=== PATIENT | female | born 1940 | race Caucasian/White ===

== ENCOUNTER → 2020-07-09 10:23 | Outpatient (BNVA) | payer MEDICARE, SELFPAY | PROVIDERS: PCP Internal Medicine; Referring Provider Internal Medicine; Visit Provider Hospitalist | DX: J44.9 Chronic obstructive pulmonary disease, unspecified (principal); R91.8 Other nonspecific abnormal finding of lung field | CPT/HCPCS: 99212 ==

== ENCOUNTER → 2020-11-26 10:32 | Outpatient (BNVA) | payer MEDICARE, SELFPAY | PROVIDERS: PCP Internal Medicine; Visit Provider Hospitalist | DX: R91.8 Other nonspecific abnormal finding of lung field (principal); J41.0 Simple chronic bronchitis; Z79.899 Other long term (current) drug therapy | CPT/HCPCS: 99212 ==

== ENCOUNTER → 2021-02-10 14:14 | Outpatient (BNVA) | payer MEDICARE, SELFPAY | PROVIDERS: PCP Internal Medicine; Visit Provider Hospitalist | DX: R91.8 Other nonspecific abnormal finding of lung field (principal); R06.00 Dyspnea, unspecified; R07.9 Chest pain, unspecified; J41.0 Simple chronic bronchitis | CPT/HCPCS: 99212 ==

== ENCOUNTER → 2021-04-21 13:37 | Outpatient (BNVA) | payer MEDICARE, SELFPAY | PROVIDERS: PCP Physician Assistant; Visit Provider Hospitalist | DX: R91.8 Other nonspecific abnormal finding of lung field (principal); R06.00 Dyspnea, unspecified; R07.9 Chest pain, unspecified; R04.2 Hemoptysis; J41.0 Simple chronic bronchitis; J18.9 Pneumonia, unspecified organism; U07.1 COVID-19 | CPT/HCPCS: Q3014 ==

== ENCOUNTER 2021-05-23 09:43 | Outpatient (REF) | payer MEDICARE, SELFPAY | END 2021-05-23 09:44 | disposition home or self-care (01) | LOC: HO.LNP 09:43 | PROVIDERS: PCP Physician Assistant; Visit Provider Hospitalist | DX: R91.8 Other nonspecific abnormal finding of lung field (principal); J18.9 Pneumonia, unspecified organism; J41.0 Simple chronic bronchitis; R06.00 Dyspnea, unspecified; R07.9 Chest pain, unspecified | CPT/HCPCS: 87070; 87205; 99212 ==

== ENCOUNTER → 2021-07-26 13:14 | Outpatient (BNVA) | payer MEDICARE, SELFPAY | PROVIDERS: PCP Physician Assistant; Visit Provider Hospitalist | DX: J41.0 Simple chronic bronchitis (principal); R91.8 Other nonspecific abnormal finding of lung field; R06.00 Dyspnea, unspecified; C34.90 Malignant neoplasm of unspecified part of unspecified bronchus or lung | CPT/HCPCS: 99212 ==

== ENCOUNTER → 2021-10-10 13:30 | Outpatient (BNVA) | payer MEDICARE, SELFPAY | PROVIDERS: PCP Physician Assistant; Visit Provider Hospitalist | DX: R91.8 Other nonspecific abnormal finding of lung field (principal); C34.90 Malignant neoplasm of unspecified part of unspecified bronchus or lung; J41.0 Simple chronic bronchitis; R06.00 Dyspnea, unspecified | CPT/HCPCS: 99212 ==

== ENCOUNTER → 2022-01-02 13:06 | Outpatient (BNVA) | payer MEDICARE, SELFPAY | PROVIDERS: PCP Physician Assistant; Visit Provider Hospitalist | DX: R91.8 Other nonspecific abnormal finding of lung field (principal); J41.0 Simple chronic bronchitis; R06.00 Dyspnea, unspecified; C34.90 Malignant neoplasm of unspecified part of unspecified bronchus or lung | CPT/HCPCS: 99212 ==

== ENCOUNTER → 2022-05-05 13:26 | Outpatient (BNVA) | payer MEDICARE, SELFPAY | PROVIDERS: PCP Physician Assistant; Visit Provider Hospitalist | DX: J41.8 Mixed simple and mucopurulent chronic bronchitis (principal); R91.8 Other nonspecific abnormal finding of lung field; R06.00 Dyspnea, unspecified; C34.90 Malignant neoplasm of unspecified part of unspecified bronchus or lung | CPT/HCPCS: 99212 ==

== ENCOUNTER 2022-08-14 11:35 | Outpatient (REF) | payer MEDICARE, SELFPAY ==
[2022-08-14 12:41] LABS: Influenza A PCR NEGATIVE (Negative); Influenza B PCR NEGATIVE (Negative); Resp Syncy Virus RNA Qual PCR NEGATIVE (Negative); SARS COV2 PCR INHOUSE NEGATIVE (Negative)
== END 2022-08-14 11:36 | disposition home or self-care (01) ==
LOC: HO.XRAY 11:35
PROVIDERS: Visit Provider Hospitalist
DX: Z20.822 Contact with and (suspected) exposure to COVID-19 (principal); R91.8 Other nonspecific abnormal finding of lung field; J41.8 Mixed simple and mucopurulent chronic bronchitis; C34.90 Malignant neoplasm of unspecified part of unspecified bronchus or lung; R07.9 Chest pain, unspecified; J18.9 Pneumonia, unspecified organism; R05.9 Cough, unspecified
CPT/HCPCS: 0241U; 71046; 99212

== ENCOUNTER → 2022-11-09 12:45 | Outpatient (BNVA) | payer MEDICARE, SELFPAY | PROVIDERS: PCP Physician Assistant; Visit Provider Hospitalist | DX: J41.8 Mixed simple and mucopurulent chronic bronchitis (principal); R06.00 Dyspnea, unspecified; C34.90 Malignant neoplasm of unspecified part of unspecified bronchus or lung; J90 Pleural effusion, not elsewhere classified | CPT/HCPCS: 99212 ==

== ENCOUNTER → 2023-02-23 10:13 | Outpatient (BNVA) | payer MEDICARE, SELFPAY | PROVIDERS: PCP Physician Assistant; Visit Provider Nurse Practitioner Family | DX: J41.8 Mixed simple and mucopurulent chronic bronchitis (principal); C34.90 Malignant neoplasm of unspecified part of unspecified bronchus or lung | CPT/HCPCS: 99212 ==

== ENCOUNTER 2023-05-10 12:54 | Outpatient (AMB) | payer MEDICARE, SELFPAY ==
[2023-05-10 13:03] VITALS: BP 124/70; PULSE 67; O2SAT 96; BMI 23.8
--- NOTE | 2023-05-10 13:03 | A.OFFVIS_ITS ---
Intake Vital Signs 05/10/23 13:03 Height 5 ft 4 in Weight 138 lb 14.259 oz BMI 23.8 BP 124/70 Blood Pressure Location Rt brachial Position Sitting Pulse 67 Pulse Source Pulse Oximeter Pulse Oximetry (%) 96 Oxygen Delivery Method Room Air Intake Visit Reasons: copd Vegetable [employer] Worker Required: No Allergies linaclotide [Linzess] Allergy (Severe, Verified 05/10/23 13:05) other lubiprostone [Amitiza] Allergy (Severe, Verified 05/10/23 13:05) other meperidine [Demerol] Allergy (Severe, Verified 05/10/23 13:05) N/V lisinopril Adverse Reaction (Severe, Verified 05/10/23 13:05) cough Penicillin Allergy (Severe, Uncoded 05/10/23 13:05) Rash/Dermatitis Percodan Allergy (Severe, Uncoded 05/10/23 13:05) ANAPHYLAXIS HPI HPI Comments History of Present Illness Details The patient is a 82-year-old woman with a known history of COPD in addition to breast cancer and underlying pulmonary nodules. Overall the patient is doing well from a respiratory status. She was admitted to [facility] with some focal sensory changes. During that evaluation she was found to have some cerebrovascular disease. In addition to the her last CT scan of the chest to follow her underlying pulmonary nodules was back in May 2019 demonstrating 1.8 cm nodular density in the left upper lobe. She has not had any imaging to follow-up. At this point patient continues to have some cough and shortness of breath. [id number] severity. She did gain weight. She understands this is probably contributing. She continues with respiratory therapy at this time. 07/26/2021 the patient is here for a pulmonary follow-up visit. Since we last spoke the patient was admitted to [facility] after developing worsening shortness of breath and hemoptysis. 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 Appears that the patient had rejected additional diagnostic interventions. During previous visits. The patient does have advanced COPD. She was referred to Oncology. She did undergo a PET scan demonstrating FDG activity of the Thoracic lymph nodes in addition to FDG activity of the left upper lobe mass. The patient will be seen radiation oncology soon to start radiation therapy. She may also undergo chemotherapy her immune therapy per the recommendation of her oncologist. She denies any more hemoptysis. She did as any chest congestion. If she does start with increasing chest congestion is reasonable to place her on antibiotics for the possibility of a postobstructive process. 10/10/2021 the patient is here for a pulmonary follow-up visit. She continues concomitant chemo radiation for the stage III lung cancer. She is tolerating her chemo. Although she is noticing increasing shortness of breath. She is scheduled to undergo pulmonary function studies sometime in the next few weeks at [facility]. In the meantime she does have some crackles on examination so therefore we will also request a chest x-ray to address the question of radiation induced pneumonitis in view of the concomitant therapy. The patient does have diabetes we have to be very careful not to empirically treated with steroids and potentially worsening diabetes. 01/02/2022 the patient is here for a pulmonary follow-up visit. The patient has been working closely with Oncology. She did complete her concomitant chemo radiation. She tolerated the therapy well. She did require some prednisone during that episode Radiation pneumonitis. Now she is off steroids. She was placed on a PDL 1 inhibitor. She is having some adverse effects. However, explained to the patient that this will provide her with disease control with longer longevity in survival. The patient will continue therapy for now. She is also complaining of congested cough with green sputum. Denies any chest tightness or wheezing. Explained to the patient that I was and some antibiotics to treat for bronchitis. However, she needs to be very careful with the use of systemic steroids as they will block the benefits of the PDL1 inhibitor. 05/05/2022 the patient is here for a pulmonary follow-up visit. Overall she continues to do very well. She is reassured with the fact that her recent CT scan of the chest demonstrated significant improvement in her lung density. She has responded to therapy. She will be following up with her oncologist soon. The patient understands that we need to avoid prednisone unless it is really necessary because it will interfere with her immune therapy. She is complaining of chest congestion. [id number] severity. Usually she brings up phlegm on a regular basis. This consistent with chronic bronchitis. Since will try to avoid the steroids will go ahead and start her on macrolide suppression therapy. 08/14/2022 the patient is here for a pul monary follow-up visit. She has been sick for the last 2-3 days. She has been complaining of back to be cough in addition to pleuritic chest discomfort. Primarily on the left side. Moderate severity. She has had some chills. Denies any sore throat. She has been exposed to multiple sick people while visiting her son in the ICU. Therefore, go ahead and swab her with our viral swab for flu, RSV and COVID-19. In the meantime will start treating the patient for bronchopneumonia. The patient is currently on immune therapy in therefore trying to hold off on the use of prednisone as it will interact with the efficacy of the PDL1 inhibitor. She continues use respiratory therapy. She continues with Symbicort. We had her on the azithromycin 3 times a week, the the a but stop it a for few months ago. 11/10/2022 the patient is here for a pulm onary follow-up visit. Overall the patient has been doing okay although she is complaining of increased sinus congestion and pressure. She feels that she is coughing up more greenish phlegm that is the pin down from her nose. Her chest itself feels okay. Denies any chest congestion wheezing. She denies any pain in the left side which she has the malignancy. She recently did have a CT scan of the chest and she did speak to her oncologist. She does continue on the PDL1 inhibitor right now. But it appears that the CT scan shows interval increase in the size of the mass on the left side and now with small trivial pleural effusion. Therefore, have her repeat chest x-ray in a couple months to assess the pleural effusion unless she is having more symptoms of shortness of breath and chest discomfort where she did have the chest x-ray done at an earlier time. She is going to talk to her oncologist regarding the effectiveness of the PDL1. I do believe the serial CT scans will be warranted specially since she received radiation and some that is hard to know for sure if the increasing densities size is due to the radiation changes or if is actually due to progression of the cancer. The patient is at ease with everything. She has had for episodes of cancer in her life and at this point she is content. 05/10/2023 the patient is here for a pulmonary follow-up visit she states that recently she went to the hospital with increased heart rate and also CT chest of chest pain. She was briefly admitted to [facility]. patient currently still having some left-sided discomfort but feels better. Feels overall soreness around the chest area. [id number] severity. She is concerned about her cancer. We did review her most recent CT scan from the end of March 2023 demonstrating stability of the left-sided lung mass. This is reassuring. Previously had increase in size likely was a reaction to the radiation therapy. she will follow-up with her oncologist soon and discuss further therapies. In the meantime she continues with respiratory therapy. Will go ahead and maximize her respiratory therapy by adding Spiriva to the Symbicort. [facility] Medical History (Updated 05/10/23 @ 23:05 by Yoshi Fernández MD) Pleural effusion Lung cancer Hemoptysis Pneumonia COVID-19 Dyspnea Chest pain Pulmonary nodules COPD (chronic obstructive pulmonary disease) Social History Patient Tobacco Use Status: Former Tobacco user Tobacco use type: Cigarette Years Smoked: 20 years Review of Systems Const Denies night sweats ENT Denies change in voice, Denies lip swelling, Denies mouth pain, Reports nasal congestion, Reports nasal discharge and Denies tongue swelling Card Reports chest pain and Reports dyspnea on exertion Resp Denies chest congestion, Reports cough, Denies hemoptysis, Reports pain on inspiration, Reports pain with cough and Reports dyspnea on exertion GI Denies abdominal pain Reports difficulty voiding and Reports pelvic pain Musc Denies no additional complaints Neuro Denies Neuro-related abnormal movements Psych Denies no additional complaints Saturnino/Lymph Denies easy bleeding and Denies lymphadenopathy Aller/Immun Denies lip swelling and Denies tongue swelling Physical Exam Vital Signs: Last Vital Signs Pulse 67 05/10/23 13:03 BP 124/70 05/10/23 13:03 Pulse Ox 96 05/10/23 13:03 Oxygen Delivery Method Room Air 05/10/23 13:03 BMI result Body Mass Index 23.8 Const General: alert Neck Neck: Yes normal visual inspection, Yes full ROM and Yes no lymphadenopathy Chest Chest palpation & inspection: normal inspection of the chest Resp Effort & Inspection: prolonged expiratory phase Auscultation: no crackles and diminished lung sounds Cardio Rate: regular rate Rhythm: regular rhythm Heart sounds: S1 normal heart sound present and S2 normal heart sound present GI Palpation (GI): Soft to palpation and nontender Auscultation: normal bowel sounds General: Yes other (posada present) Skin General skin exam: rashes and/or lesions noted Assessment & Plan Assessment & Plan (1) Pulmonary nodules: Comment: GEORGE mass with interval worsening Code(s): R91.8 - Other nonspecific abnormal finding of lung field (2) COPD (chronic obstructive pulmonary disease): Code(s): J44.9 - Chronic obstructive pulmonary disease, unspecified Qualifiers: COPD type: chronic bronchitis Chronic bronchitis type: mixed simple and mucopurulent Qualified Code(s): J41.8 - Mixed simple and mucopurulent chronic bronchitis (3) Dyspnea: Code(s): R06.00 - Dyspnea, unspecified Qualifiers: Dyspnea type: dyspnea on exertion Qualified Code(s): R06.00 - Dyspnea, unspecified (4) Lung cancer: Code(s): C34.90 - Malignant neoplasm of unspecified part of unspecified bronchus or lung Qualifiers: Laterality: left Lung location: upper lobe of lung Qualified Code(s): C34.12 - Malignant neoplasm of upper lobe, left bronchus or lung (5) Pleural effusion: Comment: Trace effusion on Left noted on CT chest 09/2022 Code(s): J90 - Pleural effusion, not elsewhere classified Plan continue Symbicort start Spiriva KHANG as needed PDL1 inhibotor as per Oncology serial CT chest as per oncology Follow-up in 4-6 months Medications: New tiotropium bromide 2.5 mcg/actuation (Spiriva Respimat) 2 puffs inhalation DAILY 30 days 1 ea 11RF Coding Level of Care Code Est Pt Level 4 (72248) Diagnoses Pulmonary nodules R91.8 Mixed simple and mucopurulent chronic bronchitis J41.8 COPD type: chronic bronchitis Chronic bronchitis type: mixed simple and mucopurulent Dyspnea on exertion R06.00 Dyspnea type: dyspnea on exertion Malignant neoplasm of upper lobe of left lung C34.12 Laterality: left Lung location: upper lobe of lung Pleural effusion J90 Time Spent (min) 18
== END 2023-05-10 13:41 | disposition home or self-care (01) ==
PROVIDERS: PCP Physician Assistant; Visit Provider Hospitalist
DX: R91.8 Other nonspecific abnormal finding of lung field (principal); J41.8 Mixed simple and mucopurulent chronic bronchitis; R06.00 Dyspnea, unspecified; C34.12 Malignant neoplasm of upper lobe, left bronchus or lung; J90 Pleural effusion, not elsewhere classified
CPT/HCPCS: 99214

== ENCOUNTER → 2023-05-10 12:54 | Outpatient (BNVA) | payer MEDICARE, SELFPAY | PROVIDERS: PCP Physician Assistant; Visit Provider Hospitalist | DX: J41.8 Mixed simple and mucopurulent chronic bronchitis (principal); C34.12 Malignant neoplasm of upper lobe, left bronchus or lung; R06.00 Dyspnea, unspecified; J90 Pleural effusion, not elsewhere classified; Z79.899 Other long term (current) drug therapy | CPT/HCPCS: 99212 ==

== ENCOUNTER 2023-09-18 12:53 | Outpatient (AMB) | payer MEDICARE, SELFPAY ==
[2023-09-18 13:09] VITALS: PULSE 89; O2SAT 100; BMI 23.8
--- NOTE | 2023-09-18 13:09 | A.OFFVIS_ITS ---
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 Overall the patient is doing well from a respiratory status. She was admitted to [facility] with some focal sensory changes. During that evaluation she was found to have some cerebrovascular disease. In addition to the her last CT scan of the chest to follow her underlying pulmonary nodules was back in May 2019 demonstrating 1.8 cm nodular density in the left upper lobe. She has not had any imaging to follow-up. At this point patient continues to have some cough and shortness of breath. [id number] severity. She did gain weight. She understands this is probably contributing. She continues with respiratory therapy at this time. 07/26/2021 the patient is here for a pulmonary follow-up visit. Since we last spoke the patient was admitted to [facility] after developing worsening shortness of breath and hemoptysis. 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 Appears that the patient had rejected additional diagnostic interventions. During previous visits. The patient does have advanced COPD. She was referred to Oncology. She did undergo a PET scan demonstrating FDG activity of the Thoracic lymph nodes in addition to FDG activity of the left upper lobe mass. The patient will be seen radiation oncology soon to start radiation therapy. She may also undergo chemotherapy her immune therapy per the recommendation of her oncologist. She denies any more hemoptysis. She did as any chest congestion. If she does start with increasing chest congestion is reasonable to place her on antibiotics for the possibility of a postobstructive process. 10/10/2021 the patient is here for a pulmonary follow-up visit. She continues concomitant chemo radiation for the stage III lung cancer. She is tolerating her chemo. Although she is noticing increasing shortness of breath. She is scheduled to undergo pulmonary function studies sometime in the next few weeks at [facility]. In the meantime she does have some crackles on examination so therefore we will also request a chest x-ray to address the question of radiation induced pneumonitis in view of the concomitant therapy. The patient does have diabetes we have to be very careful not to empirically treated with steroids and potentially worsening diabetes. 01/02/2022 the patient is here for a pulmonary follow-up visit. The patient has been working closely with Oncology. She did complete her concomitant chemo radiation. She tolerated the therapy well. She did require some prednisone during that episode Radiation pneumonitis. Now she is off steroids. She was placed on a PDL 1 inhibitor. She is having some adverse effects. However, explained to the patient that this will provide her with disease control with longer longevity in survival. The patient will continue therapy for now. She is also complaining of congested cough with green sputum. Denies any chest tightness or wheezing. Explained to the patient that I was and some antibiotics to treat for bronchitis. However, she needs to be very careful with the use of systemic steroids as they will block the benefits of the PDL1 inhibitor. 05/05/2022 the patient is here for a pulmonary follow-up visit. Overall she continues to do very well. She is reassured with the fact that her recent CT scan of the chest demonstrated significant improvement in her lung density. She has responded to therapy. She will be following up with her oncologist soon. The patient understands that we need to avoid prednisone unless it is really necessary because it will interfere with her immune therapy. She is complaining of chest congestion. yusz-be-[id number] severity. Usually she brings up phlegm on a regular basis. This consistent with chronic bronchitis. Since will try to avoid the steroids will go ahead and start her on macrolide suppression therapy. 08/14/2022 the patient is here for a pul monary follow-up visit. She has been sick for the last 2-3 days. She has been complaining of back to be cough in addition to pleuritic chest discomfort. Primarily on the left side. Moderate severity. She has had some chills. Denies any sore throat. She has been exposed to multiple sick people while visiting her son in the ICU. Therefore, go ahead and swab her with our viral swab for flu, RSV and COVID-19. In the meantime will start treating the patient for bronchopneumonia. The patient is currently on immune therapy in therefore trying to hold off on the use of prednisone as it will interact with the efficacy of the PDL1 inhibitor. She continues use respiratory therapy. She continues with Symbicort. We had her on the azithromycin 3 times a week, the the a but stop it a for few months ago. 11/10/2022 the patient is here for a pulm onary follow-up visit. Overall the patient has been doing okay although she is complaining of increased sinus congestion and pressure. She feels that she is coughing up more greenish phlegm that is the pin down from her nose. Her chest itself feels okay. Denies any chest congestion wheezing. She denies any pain in the left side which she has the malignancy. She recently did have a CT scan of the chest and she did speak to her oncologist. She does continue on the PDL1 inhibitor right now. But it appears that the CT scan shows interval increase in the size of the mass on the left side and now with small trivial pleural effusion. Therefore, have her repeat chest x-ray in a couple months to assess the pleural effusion unless she is having more symptoms of shortness of breath and chest discomfort where she did have the chest x-ray done at an earlier time. She is going to talk to her oncologist regarding the effectiveness of the PDL1. I do believe the serial CT scans will be warranted specially since she received radiation and some that is hard to know for sure if the increasing densities size is due to the radiation changes or if is actually due to progression of the cancer. The patient is at ease with everything. She has had for episodes of cancer in her life and at this point she is content. 05/10/2023 the patient is here for a pulmonary follow-up visit she states that recently she went to the hospital with increased heart rate and also CT chest of chest pain. She was briefly admitted to [facility]. patient currently still having some left-sided discomfort but feels better. Feels overall soreness around the chest area. Xjrz-tj-gieifwbb severity. She is concerned about her cancer. We did review her most recent CT scan from the end of March 2023 demonstrating stability of the left-sided lung mass. This is reassuring. Previously had increase in size likely was a reaction to the radiation therapy. she will follow-up with her oncologist soon and discuss further therapies. In the meantime she continues with respiratory therapy. Will go ahead and maximize her respiratory therapy by adding Spiriva to the Symbicort. 09/18/2023 the patient is here for [facility] follow-up visit. The patient has been admitted to the hospital couple times. She states initially she was having stroke-like symptoms. Then after that she started developing worsening cough shortness of breath and was then admitted to [facility] with which she was told was pneumonia. She was also treated for UTI. That was back in on September 03. The patient did have a chest x-ray followed by CT scan of the chest. I did personally reviewed the report. No evidence of any pulmonary emboli although the patient did have interval worsening of the left upper lobe mass concerning for worsening malignancy. In addition to that there appears to be extension with so lymphadenopathy concerning for metastatic spread to the mediastinum. Also appears to have a component of postobstructive pneumonia that she was treated for. We did go for brief walking oximetry the patient was able to maintain a pulse ox of 98% therefore she is getting adequate oxygenation. Her cough is better. She did complete a course of antibiotics already. At this point I do not believe that she needs additional antibiotics. She does continue to use her respiratory therapy. I am very worried about her overall health. She has had weight loss she has had decreased energy she has poor sleep. All potential symptoms of worsening a malignant process. The patient still would like to be evaluated and treated. We did talk about considering a PET scan to assess the degree of disease versus undergoing a bronchoscopy with endobronchial ultrasound for sampling of the lymph nodes. I did reach out to her oncologist to see if we can discuss the findings and potential options. [facility] Medical History (Updated 05/10/23 @ 23:05 by Yoshi Fernández MD) Pleural effusion Lung cancer Hemoptysis Pneumonia COVID-19 Dyspnea Chest pain Pulmonary nodules COPD (chronic obstructive pulmonary disease) Social History Patient Tobacco Use Status: Former Tobacco user Tobacco use type: Cigarette Years Smoked: 20 years Review of Systems Const Reports daytime sleepiness, Reports fatigue, Denies night sweats and Reports weight loss ENT Denies change in voice, Denies lip swelling, Denies mouth pain, Reports nasal congestion, Reports nasal discharge and Denies tongue swelling Card Reports chest pain and Reports dyspnea on exertion Resp Denies chest congestion, Reports cough, Denies hemoptysis and Reports dyspnea on exertion GI Denies abdominal pain Reports difficulty voiding and Reports pelvic pain Musc Denies no additional complaints Skin/Breast Reports pruritus Neuro Denies Neuro-related abnormal movements Psych Denies no additional complaints Endo Reports fatigue Saturnino/Lymph Denies easy bleeding and Denies lymphadenopathy Aller/Immun Denies lip swelling and Denies tongue swelling Physical Exam Vital Signs: Last Vital Signs Pulse 89 09/18/23 13:09 Pulse Ox 100 09/18/23 13:09 Oxygen Delivery Method Room Air 09/18/23 13:09 BMI result Body Mass Index 23.8 Const General: alert Neck Neck: Yes normal visual inspection, Yes full ROM and Yes no lymphadenopathy Chest Chest palpation & inspection: normal inspection of the chest Resp Effort & Inspection: normal respiratory effort Auscultation: no crackles and diminished lung sounds Cardio Rate: regular rate Rhythm: regular rhythm Heart sounds: S1 normal heart sound present and S2 normal heart sound present GI Palpation (GI): Soft to palpation and nontender Auscultation: normal bowel sounds General: Yes other (posada present) Skin General skin exam: rashes and/or lesions noted Assessment & Plan Assessment & Plan (1) Pulmonary nodules: Comment: GEORGE mass with interval worsening Code(s): R91.8 - Other nonspecific abnormal finding of lung field (2) COPD (chronic obstructive pulmonary disease): Code(s): J44.9 - Chronic obstructive pulmonary disease, unspecified Qualifiers: COPD type: chronic bronchitis Chronic bronchitis type: mixed simple and mucopurulent Qualified Code(s): J41.8 - Mixed simple and mucopurulent chronic bronchitis (3) Dyspnea: Code(s): R06.00 - Dyspnea, unspecified Qualifiers: Dyspnea type: dyspnea on exertion Qualified Code(s): R06.00 - Dyspnea, unspecified (4) Lung cancer: Code(s): C34.90 - Malignant neoplasm of unspecified part of unspecified bronchus or lung Qualifiers: Laterality: left Lung location: upper lobe of lung Qualified Code(s): C34.12 - Malignant neoplasm of upper lobe, left bronchus or lung (5) Pleural effusion: Comment: Trace effusion on Left noted on CT chest 09/2022 Code(s): J90 - Pleural effusion, not elsewhere classified Plan Appears to have progression of her lung cancer. Could consider performing a EBUS/bronchoscopy to assess if the malignancy versus PET scan. I reached out to her Oncologist to discuss the case. continue Symbicort continue Spiriva KHANG as needed Start Trazodone for sleep Follow-up in 2-3 months Medications: New trazodone 50 mg PO BEDTIME 30 days 30 tabs 6RF Coding Level of Care Code Est Pt Level 4 (39174) Diagnoses Pulmonary nodules R91.8 Mixed simple and mucopurulent chronic bronchitis J41.8 COPD type: chronic bronchitis Chronic bronchitis type: mixed simple and mucopurulent Dyspnea on exertion R06.00 Dyspnea type: dyspnea on exertion Malignant neoplasm of upper lobe of left lung C34.12 Laterality: left Lung location: upper lobe of lung Pleural effusion J90 Time Spent (min) 20
== END 2023-09-18 13:47 | disposition home or self-care (01) ==
PROVIDERS: PCP Physician Assistant; Visit Provider Hospitalist
DX: R91.8 Other nonspecific abnormal finding of lung field (principal); J41.8 Mixed simple and mucopurulent chronic bronchitis; R06.00 Dyspnea, unspecified; C34.12 Malignant neoplasm of upper lobe, left bronchus or lung; J90 Pleural effusion, not elsewhere classified
CPT/HCPCS: 99214

== ENCOUNTER → 2023-09-18 12:53 | Outpatient (BNVA) | payer MEDICARE, SELFPAY | PROVIDERS: PCP Physician Assistant; Visit Provider Hospitalist | DX: R91.8 Other nonspecific abnormal finding of lung field (principal); J41.8 Mixed simple and mucopurulent chronic bronchitis; R06.00 Dyspnea, unspecified; C34.12 Malignant neoplasm of upper lobe, left bronchus or lung; J90 Pleural effusion, not elsewhere classified; Z79.899 Other long term (current) drug therapy | CPT/HCPCS: 99212 ==

== ENCOUNTER → 2023-09-27 07:58 | Day surgery (SDC) | payer MEDICARE, SELFPAY ==
[2023-09-25 14:46] VITALS: BMI 23.8
--- NOTE | 2023-09-27 08:31 | MHC.SHP ---
Pre-Procedural Eval Section A - 24 Hr Update-Section A only Date of Service: 09/27/23 The patient is an INPATIENT: No Changes since office visit: No Cold of Flu in the past 2 weeks, No New Medical Problems, No Changes in Medication and No Patient answered all questions The patient has been examined within 24 hours of the surgical procedure. The History & Physical has been completed within 30 days and I have reviewed it.: Yes Section B - Complete if H&P > 30 days Chief Complaint: Malignant neoplasm of upper lobe, left bronchus or Allergies: Allergies Allergy/AdvReac Type Severity Reaction Status Date / Time linaclotide [Linzess] Allergy Severe other Verified 09/18/23 13:10 lubiprostone [Amitiza] Allergy Severe other Verified 09/18/23 13:10 meperidine [Demerol] Allergy Severe N/V Verified 09/18/23 13:10 lisinopril AdvReac Severe cough Verified 09/18/23 13:10 Penicillin Allergy Severe Rash/Dermat Uncoded 09/18/23 13:10 itis Percodan Allergy Severe ANAPHYLAXIS Uncoded 09/18/23 13:10 Plan I have reviewed the history and physical and performed a pertinent physical examination on my patient. No changes have occurred unless specified. Time Spent With Patient Time: Total time managing care of this patient today ____ minutes.
--- NOTE | 2023-09-27 08:55 | PC.NURSE ---
pt was not informed to stop plavix. last dose was yesterday. surgery cancelled after pt spoke with
== END ==
PROVIDERS: Visit Provider Hospitalist
DX: C34.12 Malignant neoplasm of upper lobe, left bronchus or lung (principal); Z53.09 Procedure and treatment not carried out because of other contraindication; Z79.02 Long term (current) use of antithrombotics/antiplatelets

== ENCOUNTER 2023-10-10 10:41 | Outpatient (AMB) | payer MEDICARE, SELFPAY ==
[2023-10-10 10:50] VITALS: PULSE 89; O2SAT 96; BMI 20.4
--- NOTE | 2023-10-10 10:50 | A.OFFVIS_ITS ---
Intake Vital Signs 10/10/23 10:50 Height 5 ft 4 in Weight 119 lb BMI 20.4 Pulse 89 Pulse Source Pulse Oximeter Pulse Oximetry (%) 96 Oxygen Delivery Method Room Air Intake Visit Reasons: Coughing Phlegm Allergies linaclotide [Linzess] Allergy (Severe, Verified 10/10/23 10:51) other lubiprostone [Amitiza] Allergy (Severe, Verified 10/10/23 10:51) other meperidine [Demerol] Allergy (Severe, Verified 10/10/23 10:51) N/V lisinopril Adverse Reaction (Severe, Verified 10/10/23 10:51) cough Penicillin Allergy (Severe, Uncoded 10/10/23 10:51) Rash/Dermatitis Percodan Allergy (Severe, Uncoded 10/10/23 10:51) ANAPHYLAXIS HPI HPI Comments History of Present Illness Details The patient is a 83-year-old woman with a known history of COPD in addition to breast cancer and underlying pulmonary nodules. Overall the patient is doing well from a respiratory status. She was admitted to [facility] with some focal sensory changes. During that evaluation she was found to have some cerebrovascular disease. In addition to the her last CT scan of the chest to follow her underlying pulmonary nodules was back in May 2019 demonstrating 1.8 cm nodular density in the left upper lobe. She has not had any imaging to follow-up. At this point patient continues to have some cough and shortness of breath. [id number]-[id number] severity. She did gain weight. She understands this is probably contributing. She continues with respiratory therapy at this time. 07/26/2021 the patient is here for a pulmonary follow-up visit. Since we last spoke the patient was admitted to [facility] after developing worsening shortness of breath and hemoptysis. 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 Appears that the patient had rejected additional diagnostic interventions. During previous visits. The patient does have advanced COPD. She was referred to Oncology. She did undergo a PET scan demonstrating FDG activity of the Thoracic lymph nodes in addition to FDG activity of the left upper lobe mass. The patient will be seen radiation oncology soon to start radiation therapy. She may also undergo chemotherapy her immune therapy per the recommendation of her oncologist. She denies any more hemoptysis. She did as any chest congestion. If she does start with increasing chest congestion is reasonable to place her on antibiotics for the possibility of a postobstructive process. 10/10/2021 the patient is here for a pulmonary follow-up visit. She continues concomitant chemo radiation for the stage III lung cancer. She is tolerating her chemo. Although she is noticing increasing shortness of breath. She is scheduled to undergo pulmonary function studies sometime in the next few weeks at [facility]. In the meantime she does have some crackles on examination so therefore we will also request a chest x-ray to address the question of radiation induced pneumonitis in view of the concomitant therapy. The patient does have diabetes we have to be very careful not to empirically treated with steroids and potentially worsening diabetes. 01/02/2022 the patient is here for a pulmonary follow-up visit. The patient has been working closely with Oncology. She did complete her concomitant chemo radiation. She tolerated the therapy well. She did require some prednisone during that episode Radiation pneumonitis. Now she is off steroids. She was placed on a PDL 1 inhibitor. She is having some adverse effects. However, explained to the patient that this will provide her with disease control with longer longevity in survival. The patient will continue therapy for now. She is also complaining of congested cough with green sputum. Denies any chest tightness or wheezing. Explained to the patient that I was and some antibiotics to treat for bronchitis. However, she needs to be very careful with the use of systemic steroids as they will block the benefits of the PDL1 inhibitor. 05/05/2022 the patient is here for a pulmonary follow-up visit. Overall she continues to do very well. She is reassured with the fact that her recent CT scan of the chest demonstrated significant improvement in her lung density. She has responded to therapy. She will be following up with her oncologist soon. The patient understands that we need to avoid prednisone unless it is really necessary because it will interfere with her immune therapy. She is complaining of chest congestion. [id number] severity. Usually she brings up phlegm on a regular basis. This consistent with chronic bronchitis. Since will try to avoid the steroids will go ahead and start her on macrolide suppression therapy. 08/14/2022 the patient is here for a pul monary follow-up visit. She has been sick for the last 2-3 days. She has been complaining of back to be cough in addition to pleuritic chest discomfort. Primarily on the left side. Moderate severity. She has had some chills. Denies any sore throat. She has been exposed to multiple sick people while visiting her son in the ICU. Therefore, go ahead and swab her with our viral swab for flu, RSV and COVID-19. In the meantime will start treating the patient for bronchopneumonia. The patient is currently on immune therapy in therefore trying to hold off on the use of prednisone as it will interact with the efficacy of the PDL1 inhibitor. She continues use respiratory therapy. She continues with Symbicort. We had her on the azithromycin 3 times a week, the the a but stop it a for few months ago. 11/10/2022 the patient is here for a pulm onary follow-up visit. Overall the patient has been doing okay although she is complaining of increased sinus congestion and pressure. She feels that she is coughing up more greenish phlegm that is the pin down from her nose. Her chest itself feels okay. Denies any chest congestion wheezing. She denies any pain in the left side which she has the malignancy. She recently did have a CT scan of the chest and she did speak to her oncologist. She does continue on the PDL1 inhibitor right now. But it appears that the CT scan shows interval increase in the size of the mass on the left side and now with small trivial pleural effusion. Therefore, have her repeat chest x-ray in a couple months to assess the pleural effusion unless she is having more symptoms of shortness of breath and chest discomfort where she did have the chest x-ray done at an earlier time. She is going to talk to her oncologist regarding the effectiveness of the PDL1. I do believe the serial CT scans will be warranted specially since she received radiation and some that is hard to know for sure if the increasing densities size is due to the radiation changes or if is actually due to progression of the cancer. The patient is at ease with everything. She has had for episodes of cancer in her life and at this point she is content. 05/10/2023 the patient is here for a pulmonary follow-up visit she states that recently she went to the hospital with increased heart rate and also CT chest of chest pain. She was briefly admitted to [facility]. patient currently still having some left-sided discomfort but feels better. Feels overall soreness around the chest area. [id number] severity. She is concerned about her cancer. We did review her most recent CT scan from the end of March 2023 demonstrating stability of the left-sided lung mass. This is reassuring. Previously had increase in size likely was a reaction to the radiation therapy. she will follow-up with her oncologist soon and discuss further therapies. In the meantime she continues with respiratory therapy. Will go ahead and maximize her respiratory therapy by adding Spiriva to the Symbicort. 09/18/2023 the patient is here for hospit al follow-up visit. The patient has been admitted to the hospital couple times. She states initially she was having stroke-like symptoms. Then after that she started developing worsening cough shortness of breath and was then admitted to [facility] with which she was told was pneumonia. She was also treated for UTI. That was back in on September 03. The patient did have a chest x-ray followed by CT scan of the chest. I did personally reviewed the report. No evidence of any pulmonary emboli although the patient did have interval worsening of the left upper lobe mass concerning for worsening malignancy. In addition to that there appears to be extension with so lymphadenopathy concerning for metastatic spread to the mediastinum. Also appears to have a component of postobstructive pneumonia that she was treated for. We did go for brief walking oximetry the patient was able to maintain a pulse ox of 98% therefore she is getting adequate oxygenation. Her cough is better. She did complete a course of antibiotics already. At this point I do not believe that she needs additional antibiotics. She does continue to use her respiratory therapy. I am very worried about her overall health. She has had weight loss she has had decreased energy she has poor sleep. All potential symptoms of worsening a malignant process. The patient still would like to be evaluated and treated. We did talk about considering a PET scan to assess the degree of disease versus undergoing a bronchoscopy with endobronchial ultrasound for sampling of the lymph nodes. I did reach out to her oncologist to see if we can discuss the findings and potential options. 10/10/2023 the patient is here for a pulm onary follow-up visit. The patient overall has been doing fair. She feels weak she has decreased p.o. intake. She also became sick with a respiratory illness and has been having to take antibiotics. I do believe that based on her worsening lung cancer that she may have a component of postobstructive pneumonia. Therefore the doxycycline been helping. However, I think she will need a prophylactic dose to try to minimize recurrence. Therefore when she does feel better she can decrease down to 1 tablet daily of the doxycycline. She will be starting PDL1 therapy soon. Hopefully this settle down the cancer. We can always consider biopsying if she does not respond to therapy. We had scheduled her to undergo an endobronchial ultrasound bronchoscopy but the patient was on blood thinners. Right now she is really too frail to really undergo these interventions which is best to hold off this time. The patient did have a walking oximetry and she did desaturate down to 88% with minimal activity. Therefore will go ahead and start area on a oxygen therapy with activity she can also use it with sleep. [facility] Medical History (Updated 09/27/23 @ 08:44 by Cady Alva RN) Diabetes Myocardial infarction Elevated cholesterol HTN (hypertension) CAD (coronary artery disease) Pleural effusion Lung cancer Hemoptysis Pneumonia COVID-19 Dyspnea Chest pain Pulmonary nodules COPD (chronic obstructive pulmonary disease) Surgical History (Updated 09/27/23 @ 08:40 by Cady Alva RN) H/O colonoscopy Hx of bilateral mastectomy Hx of bladder repair surgery Social History Patient Tobacco Use Status: Former Tobacco user Tobacco use type: Cigarette Years Smoked: 20 years Review of Systems Const Reports daytime sleepiness, Reports fatigue, Denies night sweats, Reports poor appetite and Reports weight loss ENT Denies change in voice, Reports dizziness, Denies lip swelling, Denies mouth pain, Reports nasal congestion, Reports nasal discharge and Denies tongue swel ling Card Reports chest pain and Reports dyspnea on exertion Resp Denies chest congestion, Reports cough, Denies hemoptysis and Reports dyspnea on exertion GI Denies abdominal pain Reports difficulty voiding and Reports pelvic pain Musc Denies no additional complaints Skin/Breast Reports pruritus Neuro Denies Neuro-related abnormal movements and Reports dizziness Psych Denies no additional complaints Endo Reports fatigue Saturnino/Lymph Denies easy bleeding and Denies lymphadenopathy Aller/Immun Denies lip swelling and Denies tongue swelling Physical Exam Vital Signs: Last Vital Signs Pulse 89 10/10/23 10:50 Pulse Ox 96 10/10/23 10:50 Oxygen Delivery Method Room Air 10/10/23 10:50 BMI result Body Mass Index 20.4 Const General: alert Neck Neck: Yes normal visual inspection, Yes full ROM and Yes no lymphadenopathy Chest Chest palpation & inspection: normal inspection of the chest Resp Effort & Inspection: normal respiratory effort Auscultation: no crackles and diminished lung sounds Cardio Rate: regular rate Rhythm: regular rhythm Heart sounds: S1 normal heart sound present and S2 normal heart sound present GI Palpation (GI): Soft to palpation and nontender Auscultation: normal bowel sounds General: Yes other (posada present) Skin General skin exam: rashes and/or lesions noted Office Procedures 6 Minute Walk Time:: 18:43 SPO2 % at rest: 96 Pulse at rest: 67 SPO2 % during excercise: 88 Pulse during excercise: 90 Distance in yards walked: 50 Maria Alejandra Score: 8 Supplemental Oxygen: desaturated with minimal activity to 88% on RA, placed on 2L/pulse and maintained pox 92% with activity 72292 - 6 Minute Walk Assessment & Plan Assessment & Plan (1) Pulmonary nodules: Comment: GEORGE mass with interval worsening Code(s): R91.8 - Other nonspecific abnormal finding of lung field (2) COPD (chronic obstructive pulmonary disease): Code(s): J44.9 - Chronic obstructive pulmonary disease, unspecified Qualifiers: COPD type: chronic bronchitis Chronic bronchitis type: mixed simple and mucopurulent Qualified Code(s): J41.8 - Mixed simple and mucopurulent chronic bronchitis (3) Dyspnea: Code(s): R06.00 - Dyspnea, unspecified Qualifiers: Dyspnea type: dyspnea on exertion Qualified Code(s): R06.00 - Dyspnea, unspecified (4) Lung cancer: Code(s): C34.90 - Malignant neoplasm of unspecified part of unspecified bronchus or lung Qualifiers: Laterality: left Lung location: upper lobe of lung Qualified Code(s): C34.12 - Malignant neoplasm of upper lobe, left bronchus or lung (5) Pleural effusion: Comment: Trace effusion on Left noted on CT chest 09/2022 Code(s): J90 - Pleural effusion, not elsewhere classified Plan Appears to have progression of her lung cancer. Will be starting immunotherapy continue Symbicort/Spiriva KHANG as needed continue Doxycycline prophylactically Trazodone for sleep Needs to start oxygen 2L with activity. conserving device when is is out of the house for portability Follow-up in 3-4 weeks Medications: New doxycycline monohydrate 100 mg PO BID 30 days 60 tabs 0RF Coding Level of Care Code Est Pt Level 4 (72278) Diagnoses Pulmonary nodules R91.8 Mixed simple and mucopurulent chronic bronchitis J41.8 COPD type: chronic bronchitis Chronic bronchitis type: mixed simple and mucopurulent Dyspnea on exertion R06.00 Dyspnea type: dyspnea on exertion Malignant neoplasm of upper lobe of left lung C34.12 Laterality: left Lung location: upper lobe of lung Pleural effusion J90 CPT Codes Coding ([id number]) Time Spent (min) 18
[2023-10-10 18:43] VITALS: PULSE 67; O2SAT 96
== END 2023-10-10 11:22 | disposition home or self-care (01) ==
PROVIDERS: Visit Provider Hospitalist
DX: R91.8 Other nonspecific abnormal finding of lung field (principal); J41.8 Mixed simple and mucopurulent chronic bronchitis; R06.00 Dyspnea, unspecified; C34.12 Malignant neoplasm of upper lobe, left bronchus or lung; J90 Pleural effusion, not elsewhere classified
CPT/HCPCS: 94618; 99214

== ENCOUNTER → 2023-10-10 10:41 | Outpatient (BNVA) | payer MEDICARE, SELFPAY | PROVIDERS: Visit Provider Hospitalist | DX: R91.8 Other nonspecific abnormal finding of lung field (principal); J41.8 Mixed simple and mucopurulent chronic bronchitis; J90 Pleural effusion, not elsewhere classified; R06.00 Dyspnea, unspecified; C34.12 Malignant neoplasm of upper lobe, left bronchus or lung | CPT/HCPCS: 94618; 99212 ==